=== PATIENT | male | born 1950 | race Caucasian/White ===

== ENCOUNTER 2018-10-05 19:19 | Emergency (ER) | payer MEDICARE, OTHER, SELFPAY ==
[2018-10-05 19:19] VITALS: TEMP 34.9
[2018-10-05 19:20] VITALS: TEMP 34.9; BMI 46.0
[2018-10-05 19:31] VITALS: BP 207/97
--- NOTE | 2018-10-05 19:40 | ED.VISSUMM ---
- ER Visit Summary Date of Service: 10/05/18 Chief Complaint: Full arrest History of Present Illness: The patient is a 68 M who comes in in full arrest. states that the patient has sudden onset of abdominal pain and then collapsed. He does have a history of coronary disease with a stent. EMS was called and CPR was initiated. He received 3 doses of epinephrine, 1 bicarb and was defibrillated multiple times due to V. fib. They did get a round of PEA but never regained a pulse. Physical Examination: The patient had no vital signs upon arrival. HEENT exam reveals pupils that are fixed and dilated. His neck is supple. No heart sounds are auscultated. Endotracheal tube is present with diminished sounds on the left. His abdomen is soft and distended. Extremities reveal no edema. He has no rashes. His GCS is 3T Test Results: None performed Emergency Department Course and Treatment: Patient was in V. fib upon arrival. He was defibrillated twice. He was given epinephrine and amiodarone. He had no pulses or heart sounds that were regained. Discussed with the and she requested that we ceased efforts after it had been more than 50 minutes of downtime. Treatment Plan: [] Disposition: Reena Impression: Cardiopulmonary arrest This note was generated with [employer] dictation software. It may contain incorrect words, spelling, and punctuation that were not noted in review of the chart prior to signing ED Disposition - Plan for ED Patient: Referrals: Charles Helm III, MD [Primary Care Provider] -
--- NOTE | 2018-10-05 19:41 | CPS ---
pt arrived, intubated by squad
--- NOTE | 2018-10-05 19:47 | CM.ED ---
Social Work Note SW responded to code blue. present at triage desk and introduced self and role at [facility]. , Diamante, states that the pt collapsed today and she contacted EMS. Denies that he has recently been hospitalized. States that pt is a full code and does not have any advanced directives. Diamante's sister is with her as she drove her to the ED. They deny any needs at this time. Dr. Maldonado out to update Diamante on code status. Diamante and her sister accompany Dr. Maldonado into pt's room and are present for end of code. Support provided. Diamante states that they would like [place] [facility] in [place]. Notified Kendall Rodriguez RN. Update Diamante that staff will contact the home and they will contact her in a day or two to go over arrangements. Understanding expressed. Made aware that this sheet writer is available if needs arise. Jennyfer Kaba, SALES MANAGER [employer], [place]
--- NOTE | 2018-10-05 20:32 | ED.RN ---
FAMILY LEFT AT THIS TIME. EYE CARE PREFORMED PER [facility]. HOME MADE AWARE. PENDING [facility] CASE REVIEW
== END 2018-10-05 21:34 ==
PROVIDERS: Emergency Provider Emergency Medicine; Family Provider Family Medicine; PCP Family Medicine
DX: I46.9 Cardiac arrest, cause unspecified (principal); I25.10 Atherosclerotic heart disease of native coronary artery without angina pectoris; I48.91 Unspecified atrial fibrillation; Z95.5 Presence of coronary angioplasty implant and graft; Z79.82 Long term (current) use of aspirin; Z72.0 Tobacco use
CPT/HCPCS: 92950; 99282; J7030; A4216